=== PATIENT | female | born 1995 | race Caucasian/White ===

== ENCOUNTER 2017-03-30 19:01 | Emergency (ER) | payer OTHER ==
[2017-03-30 19:27] VITALS: BP 130/70
--- NOTE | 2017-03-30 20:00 | UC ---
General HPI - HPI Summary HPI Summary: complaint of tick bites on her right leg thta was about 3 weeks ago her veins popped out around the tick bites sore throat since then feels like her right eye is itchy -occasional clear discharge from eye she has had 3 episodes of loss of vision in the last 3 weeks intermittent headaches denies fever but has had chills feels more fatigued than usual - History of Current Complaint Chief Complaint: UCEye Stated Complaint: EYE COMPLAINT Time Seen by Provider: 03/30/17 19:50 Hx Obtained From: Patient - Allergy/Home Medications Allergies/Adverse Reactions: Allergies Allergy/AdvReac Type Severity Reaction Status Date / Time No Known Allergies Allergy Verified 03/30/17 19:27 Home Medications: Home Medications NK [No Home Medications Reported] 03/30/17 [History Confirmed 03/30/17] PMH/Surg Hx/FS Hx/Imm Hx Previously Healthy: Yes Endocrine History Of: Denies: Diabetes, Thyroid Disease Cardiovascular History Of: Denies: Cardiac Disorders, Hypertension Respiratory History Of: Denies: COPD, Asthma GI/ History Of: Denies: Ulcer - Surgical History Surgical History: None - Family History Known Family History: Negative: Cardiac Disease, Hypertension, Diabetes - Social History Occupation: Employed Full-time Lives: With Family Alcohol Use: None Substance Use Type: None Substance Use Comment - Amount & Last Used: pt declines current use, postive for marijuana at screen early Smoking Status (MU): Current Some Day Smoker Have You Smoked in the Last Year: No Cessation Counseling: Patient Advised to Stop - Immunization History Most Recent Influenza Vaccination: declined last season Most Recent Tetanus Shot: unsure, declined while Most Recent Pneumonia Vaccination: never Review of Systems Constitutional: Fatigue Skin: Negative Eyes: Blurred Vision ENT: Negative Respiratory: Negative Cardiovascular: Negative Gastrointestinal: Negative Genitourinary: Negative Motor: Negative Neurovascular: Negative Musculoskeletal: Arthralgia Neurological: Headache Psychological: Negative All Other Systems Reviewed And Are Negative: Yes Physical Exam Triage Information Reviewed: Yes Appearance: No Pain Distress, Well-Nourished Vital Signs: Initial Vital Signs Temp 98.0 F 03/30/17 19:16 Pulse 62 03/30/17 19:16 Resp 18 03/30/17 19:16 BP 130/70 03/30/17 19:16 Pulse Ox 96 03/30/17 19:16 Vital Signs Reviewed: Yes Eyes: Positive: Conjunctiva Clear. Negative: Conjunctiva Inflamed, Discharge ENT: Positive: Pharynx normal, TMs normal, Other: - PERRL, EOMI, fundoscopic exam normal Neck: Positive: No Lymphadenopathy Respiratory: Positive: Lungs clear, Normal breath sounds, No respiratory distress, No accessory muscle use Cardiovascular: Positive: RRR, No Murmur, Pulses Normal Abdomen Description: Positive: Nontender, No Organomegaly, Soft Bowel Sounds: Positive: Present Musculoskeletal: Positive: No Edema Neurological: Positive: Alert, Other: - CN [id number] Psychological Exam: Normal Skin Exam: Normal Course/Dx - Course Course Of Treatment: exam completed. no neuro deficits iderntified. d/t complaint of loss of vision in right eye 3 episodes in the last 3 weeks will transfer to higher level of care for further evaluation - Differential Dx - Multi-Symptom Provider Diagnoses: headache, visual disturbances - Physician Notifications Discussed Patient Care With: Shweta COMBS Time Discussed With Above Provider: 20:19 Discharge - Discharge Plan Condition: Stable Disposition: TRANS HIGHER L OF CARE FAC
== END 2017-03-30 20:23 | disposition short-term general hospital (02) ==
LOC: UCEAST 19:01
DX: R51 Headache (principal); H53.9 Unspecified visual disturbance; Z72.0 Tobacco use
CPT/HCPCS: 99212; G0463

== ENCOUNTER 2017-03-30 21:15 | Emergency (ER) | payer OTHER ==
[2017-03-30 22:42] VITALS: BP 115/71
[2017-03-31 00:41] LABS: Hematocrit 44 % (35-47); Hemoglobin 14.9 g/dl (12.0-16.0); Mean Corpuscular HGB Conc 34 g/dl (31-36); Mean Corpuscular Hemoglobin 29 pg (27-31); Mean Corpuscular Volume 86 fL (80-97); Mean Platelet Volume 8 um3 (7.4-10.4); Red Cell Distribution Width 13 % (10.5-15); White Blood Count 9.3 10^3/ul (3.5-10.8)
[2017-03-31 00:54] LABS: ALT 13 U/L (7-52); AST 16 U/L (13-39); Albumin 4.5 g/dL (3.2-5.2); Alkaline Phosphatase 57 U/L (34-104); Anion Gap 8 mmol/L (2-11); BUN/Creatinine Ratio 16.2 (8-20); Blood Urea Nitrogen 11 mg/dL (6-24); C Reactive Protein 3.14 mg/L (< 5.00); CO2 Carbon Dioxide 27 mmol/L (22-32); Calcium 9.6 mg/dL (8.6-10.3); Chloride 103 mmol/L (101-111); EGFR African American 136.7 (>60); EGFR Non-African American 106.3 (>60); Glucose 89 mg/dL (70-100); Lipase 22 U/L (11.0-82.0); Potassium 3.7 mmol/L (3.5-5.0); Sodium 138 mmol/L (133-145); Total Protein 7.5 g/dL (6.4-8.9)
[2017-03-31 01:53] LABS: Urine Bacteria 1+ (Absent); Urine Bilirubin Negative (Negative); Urine Glucose Negative (Negative); Urine Nitrite Negative (Negative)
--- NOTE | 2017-03-31 01:58 | ED ---
Haroon Moreno Benjamin, scribed for Melo Segura MD on 03/30/17 at 2310 . Complex/Multi-Sys Presentation - HPI Summary HPI Summary: 22yo female who had 2 tick bites 3 weeks ago at her right thigh. 2 days after, pt reports her right eye temporarily having singh vision for about 5 minutes with right eye pain. Pt then subsequently gets migraines on the right frontal lobe lasting about 15-30 minutes. Pt states that her visual change and migraines recurred every few days, with total of three episodes. Also reports constant nausea, intermittent body aches, feeling hot, having chills, Pts right knee has been giving up lately, but denies having any leg pain. Denies abdominal pain, V/D, rash, or vaginal discharge. Pt doesn't have any previous hx of migraines. - History Of Current Complaint Chief Complaint: EDGeneral Time Seen by Provider: 03/30/17 22:55 Hx Obtained From: Patient Onset/Duration: Gradual Onset, Lasting Weeks - 3 weeks, Still Present, Worse Since - progressively worsening Timing: Intermittent, Lasting:, Minutes - 5-15 minutes Severity Currently: Mild Severity Initially: Mild Location: Pain At: - right eye Associated Signs And Symptoms: Positive: Weakness - RLE, Headache - right frontal migraine, Nausea. Negative: Vomiting, Diarrhea, Abdominal Pain, Back Pain, Dysuria, Melena - Allergies/Home Medications Allergies/Adverse Reactions: Allergies Allergy/AdvReac Type Severity Reaction Status Date / Time No Known Allergies Allergy Verified 03/30/17 21:27 PMH/Surg Hx/FS Hx/Imm Hx Endocrine/Hematology History: Denies: Hx Diabetes, Hx Thyroid Disease Cardiovascular History: Denies: Hx Hypertension Respiratory History: Denies: Hx Asthma, Hx Chronic Obstructive Pulmonary Disease (COPD) GI History: Denies: Hx Ulcer - Immunization History Date of Tetanus Vaccine: utd Date of Influenza Vaccine: utd Infectious Disease History: No Infectious Disease History: Denies: Hx Clostridium Difficile, Hx Hepatitis, Hx Human Immunodeficiency Virus (HIV), Hx of Known/Suspected MRSA, Hx Shingles, Hx Tuberculosis, Hx Known/ Suspected VRSA, History Other Infectious Disease, Traveled Outside the [place] in Last 30 Days - Family History Known Family History: Negative: Cardiac Disease, Hypertension, Diabetes - Social History Occupation: Employed Full-time Lives: With Family Alcohol Use: Rare Substance Use Type: Reports: None Substance Use Comment - Amount & Last Used: pt declines current use, postive for marijuana at screen early Smoking Status (MU): Current Some Day Smoker Have You Smoked in the Last Year: No Review of Systems Positive: Fever, Chills Positive: Other - right eye visual changes Cardiovascular: Negative Respiratory: Negative Positive: Nausea. Negative: Vomiting, Diarrhea Genitourinary: Negative Musculoskeletal: Negative Skin: Negative Positive: Headache Psychological: Normal All Other Systems Reviewed And Are Negative: Yes Physical Exam Triage Information Reviewed: Yes Vital Signs On Initial Exam: Initial Vitals Temp Pulse Resp BP Pulse Ox 98.7 F 66 16 115/81 99 03/30/17 21:20 03/30/17 21:20 03/30/17 21:20 03/30/17 21:20 03/30/17 21:20 Vital Signs Reviewed: Yes Appearance: Positive: Well-Appearing, No Pain Distress, Well-Nourished Skin: Positive: Warm, Skin Color Reflects Adequate Perfusion, Dry Eyes: Positive: EOMI, RANJIT, Other: - no papilledema ENT: Positive: Normal ENT inspection Neck: Positive: Supple, Nontender Respiratory/Lung Sounds: Positive: Clear to Auscultation, Breath Sounds Present Cardiovascular: Positive: RRR Abdomen Description: Positive: Nontender, No Organomegaly, Soft Bowel Sounds: Positive: Present Musculoskeletal: Positive: Normal, Strength/ROM Intact Neurological: Positive: Normal, Sensory/Motor Intact, Alert, Oriented to Person Place, Time Psychiatric: Positive: Affect/Mood Appropriate - [place] Coma Scale Coma Scale Total: 15 Diagnostics - Vital Signs Vital Signs Temp Pulse Resp BP Pulse Ox 03/30/17 22:36 98.3 F 64 16 115/71 98 03/30/17 21:20 98.7 F 66 16 115/81 99 - Laboratory Lab Results: Lab Results 03/31/17 03/31/17 03/31/17 Range/Units 00:27 00:27 00:27 WBC 9.3 (3.5-10.8) 10^3/ul RBC 5.10 (4.0-5.4) 10^6/ul Hgb 14.9 (12.0-16.0) g/dl Hct 44 (35-47) % MCV 86 (80-97) fL MCH 29 (27-31) pg MCHC 34 (31-36) g/dl RDW 13 (10.5-15) % Plt Count 328 (150-450) 10^3/ul MPV 8 (7.4-10.4) um3 Neut % (Auto) 42.5 (38-83) % Lymph % (Auto) 47.0 (25-47) % Coleman % (Auto) 8.9 (1-9) % Eos % (Auto) 1.2 (0-6) % Baso % (Auto) 0.4 (0-2) % Absolute Neuts (auto) 4.0 (1.5-7.7) 10^3/ul Absolute Lymphs (auto) 4.4 (1.0-4.8) 10^3/ul Absolute Monos (auto) 0.8 (0-0.8) 10^3/ul Absolute Eos (auto) 0.1 (0-0.6) 10^3/ul Absolute Basos (auto) 0 (0-0.2) 10^3/ul Absolute Nucleated RBC 0.01 10^3/ul Nucleated RBC % 0.1 INR (Anticoag Therapy) 0.94 (0.89-1.11) APTT 32.8 (26.0-36.3) seconds Sodium 138 (133-145) mmol/L Potassium 3.7 (3.5-5.0) mmol/L Chloride 103 (101-111) mmol/L Carbon Dioxide 27 (22-32) mmol/L Anion Gap 8 (2-11) mmol/L BUN 11 (6-24) mg/dL Creatinine 0.68 (0.51-0.95) mg/dL Est GFR ( Amer) 136.7 (>60) Est GFR (Non-Af Amer) 106.3 (>60) BUN/Creatinine Ratio 16.2 (8-20) Glucose 89 (70-100) mg/dL Lactic Acid (0.5-2.0) mmol/L Calcium 9.6 (8.6-10.3) mg/dL Magnesium 2.0 (1.9-2.7) mg/dL Total Bilirubin 0.40 (0.2-1.0) mg/dL AST 16 (13-39) U/L ALT 13 (7-52) U/L Alkaline Phosphatase 57 (34-104) U/L C-Reactive Protein 3.14 (< 5.00) mg/L Total Protein 7.5 (6.4-8.9) g/dL Albumin 4.5 (3.2-5.2) g/dL Globulin 3.0 (2-4) g/dL Albumin/Globulin Ratio 1.5 (1-3) Lipase 22 (11.0-82.0) U/L TSH 0.80 (0.34-5.60) mcIU/mL Beta HCG, Quant < 0.60 mIU/mL Urine Color Urine Appearance Urine pH (5-9) Ur Specific [place] (1.010-1.030) Urine Protein (Negative) Urine Ketones (Negative) Urine Blood (Negative) Urine Nitrate (Negative) Urine Bilirubin (Negative) Urine Urobilinogen (Negative) Ur Leukocyte Esterase (Negative) Urine WBC (Auto) (Absent) Urine RBC (Auto) (Absent) Ur Squamous Epith Cells (Absent) Urine Bacteria (Absent) Urine Glucose (Negative) 03/31/17 03/31/17 Range/Units 00:27 01:35 WBC (3.5-10.8) 10^3/ul RBC (4.0-5.4) 10^6/ul Hgb (12.0-16.0) g/dl Hct (35-47) % MCV (80-97) fL MCH (27-31) pg MCHC (31-36) g/dl RDW (10.5-15) % Plt Count (150-450) 10^3/ul MPV (7.4-10.4) um3 Neut % (Auto) (38-83) % Lymph % (Auto) (25-47) % Coleman % (Auto) (1-9) % Eos % (Auto) (0-6) % Baso % (Auto) (0-2) % Absolute Neuts (auto) (1.5-7.7) 10^3/ul Absolute Lymphs (auto) (1.0-4.8) 10^3/ul Absolute Monos (auto) (0-0.8) 10^3/ul Absolute Eos (auto) (0-0.6) 10^3/ul Absolute Basos (auto) (0-0.2) 10^3/ul Absolute Nucleated RBC 10^3/ul Nucleated RBC % INR (Anticoag Therapy) (0.89-1.11) APTT (26.0-36.3) seconds Sodium (133-145) mmol/L Potassium (3.5-5.0) mmol/L Chloride (101-111) mmol/L Carbon Dioxide (22-32) mmol/L Anion Gap (2-11) mmol/L BUN (6-24) mg/dL Creatinine (0.51-0.95) mg/dL Est GFR ( Amer) (>60) Est GFR (Non-Af Amer) (>60) BUN/Creatinine Ratio (8-20) Glucose (70-100) mg/dL Lactic Acid 0.6 (0.5-2.0) mmol/L Calcium (8.6-10.3) mg/dL Magnesium (1.9-2.7) mg/dL Total Bilirubin (0.2-1.0) mg/dL AST (13-39) U/L ALT (7-52) U/L Alkaline Phosphatase (34-104) U/L C-Reactive Protein (< 5.00) mg/L Total Protein (6.4-8.9) g/dL Albumin (3.2-5.2) g/dL Globulin (2-4) g/dL Albumin/Globulin Ratio (1-3) Lipase (11.0-82.0) U/L TSH (0.34-5.60) mcIU/mL Beta HCG, Quant mIU/mL Urine Color Yellow Urine Appearance Cloudy Urine pH 6.0 (5-9) Ur Specific [place] 1.020 (1.010-1.030) Urine Protein Negative (Negative) Urine Ketones Negative (Negative) Urine Blood Negative (Negative) Urine Nitrate Negative (Negative) Urine Bilirubin Negative (Negative) Urine Urobilinogen Negative (Negative) Ur Leukocyte Esterase 1+ H (Negative) Urine WBC (Auto) 1+(6-10/hpf) H (Absent) Urine RBC (Auto) 1+(3-5/hpf) H (Absent) Ur Squamous Epith Cells Present H (Absent) Urine Bacteria 1+ H (Absent) Urine Glucose Negative (Negative) Result Diagrams: 03/31/17 00:27 03/31/17 00:27 Lab Statement: Any lab studies that have been ordered have been reviewed, and results considered in the medical decision making process. - CT CT brain CT Interpretation: No Acute Changes CT Interpretation Completed By: Radiologist Complex Multi-Symp Course/Dx Course Of Treatment: NO CRITICAL CARE TIME Assessment/Plan: WELL IN ED. DISCUSSED RESULTS WITH PATIENT. SHE WILL F/U WITH OPHTHALMOLOGY AND PMD. DISCHARGE HOME STABLE. - Diagnoses Provider Diagnoses: Headache, Blurred vision, Tick bite Discharge - Discharge Plan Condition: Stable Disposition: HOME Patient Education Materials: Tick Bite (ED), Blurred Vision (ED), General Headache (ED) Referrals: [facility] [place] [facility] [Outside] No Primary Care Phys,NOPCP [Primary Care Provider] - [facility] [place] [Provider Group] PAM CRISTOBAL MD [Provider Group] Additional Instructions: FOLLOW UP WITH YOUR PRIMARY CARE DOCTOR AND EXPERT MEDICAL WRITER. RETURN TO THE EMERGENCY DEPARTMENT FOR ANY WORSENING OF YOUR CONDITION; VISION CHANGE, HEADACHE, YOU FEEL ILL, WEAKNESS, NUMBNESS OR QUESTIONS OR CONCERNS. The documentation as recorded by the Haroon interiano Benjamin accurately reflects the service I personally performed and the decisions made by me, Melo Segura MD.
--- NOTE | 2017-03-31 07:41 | RAD ---
HISTORY: right-sided headache, visual changes COMPARISONS: None TECHNIQUE: Multiple contiguous axial CT scans were obtained of the head without intravenous contrast. FINDINGS: HEMORRHAGE/INFARCT: There is no hemorrhage or acute infarct. MASSES/SHIFT: There is no mass or shift. EXTRA-AXIAL SPACES: There are no extra-axial fluid collections. SULCI AND VENTRICLES: The sulci and ventricles are normal in size and position for the patient's stated age. CEREBRUM: There are no focal parenchymal abnormalities. BRAINSTEM: There are no focal parenchymal abnormalities. CEREBELLUM: There are no focal parenchymal abnormalities. VESSELS: The vessels are grossly normal. PARANASAL SINUSES: The paranasal sinuses are clear. ORBITS: The orbits are unremarkable. BONES AND SOFT TISSUE: No bone or soft tissue abnormalities are noted. OTHER: None IMPRESSION: NO ACUTE INTRACRANIAL PATHOLOGY.
== END 2017-03-31 02:35 | disposition home or self-care (01) ==
LOC: ED 21:15
DX: R53.1 Weakness (principal); R51 Headache; R11.0 Nausea; R50.9 Fever, unspecified; Z87.891 Personal history of nicotine dependence; H53.8 Other visual disturbances; T14.8 Other injury of unspecified body region; W57.XXXA Bitten or stung by nonvenomous insect and other nonvenomous arthropods, initial encounter; Y93.9 Activity, unspecified; Y92.9 Unspecified place or not applicable; Y99.9 Unspecified external cause status
CPT/HCPCS: 36415; 70450; 80053; 81003; 81015; 83605; 83690; 83735; 84443; 84702; 85025; 85610; 85730; 86140; 86618; 87086; 99282

== ENCOUNTER → 2018-12-11 | Emergency (ER) | payer OTHER ==
[~2018-12-11] MED LIST: NS 0.9% 1000 ML** 1,000 ML IV ONE
--- NOTE | 2018-12-11 13:20 | ED ---
Abdominal Pain/Female - HPI Summary HPI Summary: A 23 y/o female accompanied by her family presents to [facility] with a chief complaint of lower abdominal pain since the morning of 12/11/18. She describes her pain as cramping and rates her pain as a 7/10 in severity. She reports that the pain is mostly left sided. The patient is 14 weeks and has one child. Ab0. The patient reports some nausea and constipation, claiming that her last BM was on 12/09/18. She reports that the bowel movement looked normal. She reports that she has had normal vaginal discharge without bleeding. She also c/o nausea but denies vomiting, diarrhea or having contractions. She sees Frantz Willis at [facility] and is satisfied with her service. She denies smoking, drug use or alcohol use. She denies a Hx of HTN, DM or HLD. - History of Current Complaint Chief Complaint: EDAbdPain Stated Complaint: 14 WEEKS PREG/ABD CRAMPING Time Seen by Provider: 12/11/18 12:36 Hx Obtained From: Patient Hx Last Menstrual Period: 03/27/17 Onset/Duration: Sudden Onset, Lasting Hours, Still Present Timing: Hours Severity Initially: Severe Severity Currently: Severe Pain Intensity: 7 Pain Scale Used: 0-10 Numeric Location: Other - mostly left sided Radiates: No Character: Cramping Aggravating Factor(s): Nothing Alleviating Factor(s): Nothing Associated Signs and Symptoms: Positive: Constipation, Vaginal Discharge, Nausea. Negative: Fever, Blood in Stool, Vaginal Bleeding, Vomiting, Diarrhea Allergies/Adverse Reactions: Allergies Allergy/AdvReac Type Severity Reaction Status Date / Time No Known Allergies Allergy Verified 12/11/18 11:25 Home Medications: Home Medications Pnv No.95/Ferrous Fum/Folic AC [ Caplet] 1 each PO DAILY 12/11/18 [ History Confirmed 12/11/18] PMH/Surg Hx/FS Hx/Imm Hx Endocrine/Hematology History: Denies: Hx Diabetes, Hx Thyroid Disease Cardiovascular History: Denies: Hx Hypercholesterolemia, Hx Hypertension Respiratory History: Denies: Hx Asthma, Hx Chronic Obstructive Pulmonary Disease (COPD) GI History: Denies: Hx Ulcer - Immunization History Date of Tetanus Vaccine: utd Date of Influenza Vaccine: utd Infectious Disease History: No Infectious Disease History: Denies: Hx Clostridium Difficile, Hx Hepatitis, Hx Human Immunodeficiency Virus (HIV), Hx of Known/Suspected MRSA, Hx Shingles, Hx Tuberculosis, Hx Known/ Suspected VRSA, History Other Infectious Disease, Traveled Outside the [place] in Last 30 Days - Family History Known Family History: Negative: Cardiac Disease, Hypertension, Diabetes - Social History Alcohol Use: None Substance Use Type: Reports: None Substance Use Comment - Amount & Last Used: pt declines current use, postive for marijuana at screen early Smoking Status (MU): Former Smoker Have You Smoked in the Last Year: No Review of Systems Negative: Fever Positive: Abdominal Pain, Nausea, Other - positive: constipation, normal bowel movements. Negative: Vomiting, Diarrhea Genitourinary: Negative - vaginal bleeding or contractions, Other - Positive: vaginal discharge All Other Systems Reviewed And Are Negative: Yes Physical Exam - Summary Physical Exam Summary: VITAL SIGNS: Reviewed. GENERAL: Patient is a well-developed and nourished female who is lying comfortable in the stretcher. Patient is not in any acute respiratory distress. HEAD AND FACE: Normocephalic and atraumatic. EYES: PERRLA, EOMI x 2, No injected conjunctiva. EARS: Hearing grossly intact. Ear canals and tympanic membranes are WNL. MOUTH: Oropharynx within normal limits. NECK: Supple, trachea is midline, no adenopathy, no JVD. CHEST: Symmetric, no tenderness at palpation LUNGS: Clear to auscultation bilaterally. No wheezing or crackles. CVS: RRR, S1 and S2 present, no murmurs or gallops appreciated. ABDOMEN: Soft, LLQ tenderness. No signs of distention. Positive bowel sounds. No rebound no guarding, and no masses palpated. No abdominal bruit or pulsations. EXTREMITIES: FROM in all major joints, no edema, no cyanosis or clubbing. NEURO: Alert and oriented x 3. No acute neurological deficits. Speech is normal. SKIN: Dry and warm Triage Information Reviewed: Yes Vital Signs On Initial Exam: Initial Vitals Temp Pulse Resp BP Pulse Ox 98.8 F 83 20 118/75 98 12/11/18 11:21 12/11/18 11:21 12/11/18 11:21 12/11/18 11:21 12/11/18 11:21 Vital Signs Reviewed: Yes Diagnostics - Vital Signs Vital Signs Temp Pulse Resp BP Pulse Ox 12/11/18 11:21 98.8 F 83 20 118/75 98 - Laboratory Result Diagrams: 12/11/18 13:31 12/11/18 13:31 Lab Statement: Any lab studies that have been ordered have been reviewed, and results considered in the medical decision making process. Re-Evaluation - Re-Evaluation First Eval Re-Evaluation Time: 15:33 Change: Unchanged Comment: Informed patient about results and plan for DC Abdominal Pain Fem Course/Dx - Course Course Of Treatment: Blood work without any significant abnormality except 4 CRP of 5.44 and lipase 8 stent. In the ED course I ordered IV fluids, the patient refused. In the ED course the patient did not require any pain medication, the patient is comfortable. I discussed the case with Dr. Back from the [facility] and he recommends to JUST FOLLOW-UP WITH THE [facility]. I also discussed the case with Ms. Willis who is the copper flotation operator for the patient and she also agrees no ultrasound at this point, given a position for MiraLAX for constipation and discharged her home and follow up with her office. The patient reports and that she is feeling better and the pain is only 1-2 out of 10 only when she moves and she agrees with the plan to be discharged home on follow-up with Ms. Mckeon. Patient is hemodynamically stable alert and oriented 3. - Diagnoses Provider Diagnoses: Lower abdominal pain, , Constipation - Provider Notifications Discussed Care Of Patient With: Nayan Back Time Discussed With Above Provider: 14:45 Instructed by Provider To: Other - Does not recommend ultrasound Discharge - Sign-Out/Discharge Documenting (check all that apply): Patient Departure - DC Patient Received Moderate/Deep Sedation with Procedure: No - Discharge Plan Condition: Stable Disposition: HOME Prescriptions: Polyethylene Glycol 3350* [Miralax*] 17 gm PO DAILY #12 packet Referrals: [facility] [place] [facility] [Outside] - 3 Days () Additional Instructions: Return to the ED if you experience any new or worsening pain. - Billing Disposition and Condition Condition: STABLE Disposition: Home - Attestation Statements Document Initiated by Scribe: Yes Documenting Scribe: Bharathi Mabry Provider For Whom Scribe is Documenting (Include Credential): Aris Bradley MD Scribe Attestation: IBharathi, scribed for Aris Bradley MD on 12/11/18 at 2120. Scribe Documentation Reviewed: Yes Provider Attestation: The documentation as recorded by the scribe, Bharathi Mabry accurately reflects the service I personally performed and the decisions made by me, Aris Bradley MD Status of Scribe Document: Viewed Consult Consult: At 15:30 - Discussed case with Frantz Willis from [facility], who also agreed with not getting an Ultrasound
[2018-12-11 13:36] LABS: Urine Appearance Cloudy; Urine Bacteria Absent (Absent); Urine Bilirubin Negative (Negative); Urine Blood Negative (Negative); Urine Color Yellow; Urine Glucose Negative (Negative); Urine Ketones Negative (Negative); Urine Nitrite Negative (Negative); Urine Protein Negative (Negative); Urine Red Blood Cell 2+(6-10/hpf) (Absent); Urine Specific Gravity 1.019 (1.010-1.030); Urine Squamous Epithelial Cell Present (Absent); Urine Urobilinogen Negative (Negative); Urine White Blood Cell 3+(>20/hpf) (Absent)
[2018-12-11 13:57] LABS: Albumin 3.8 g/dL (3.2-5.2); Albumin/Globulin Ratio 1.3 (1-3); BUN/Creatinine Ratio 11.1 (8-20); C Reactive Protein 9.44 mg/L (<8.01); Calcium 9.3 mg/dL (8.6-10.3); EGFR African American 166.4 (>60); EGFR Non-African American 137.6 (>60); Globulin 2.9 g/dL (2-4); Potassium 3.6 mmol/L (3.5-5.0); Total Bilirubin 0.4 mg/dL (0.2-1.0); Total Protein 6.7 g/dL (6.4-8.9)
[2018-12-11 14:00] LABS: ABS Basophils 0 10^3/ul (0-0.2); ABS Eosinophils 0.2 10^3/ul (0-0.6); ABS Lymphocytes 2.2 10^3/ul (1.0-4.8); ABS Monocytes 0.6 10^3/ul (0-0.8); ABS Neutrophils 5.7 10^3/ul (1.5-7.7); ABS Nucleated RBC 0 10^3/ul; Eosinophil % 2.2 %; Hematocrit 37 % (35-47); Hemoglobin 12.7 g/dl (12.0-16.0); Lymphocyte % 25.2 %; Mean Corpuscular HGB Conc 35 g/dl (31-36); Mean Corpuscular Hemoglobin 30 pg (27-31); Mean Corpuscular Volume 86 fL (80-97); Mean Platelet Volume 7.9 fL (7.4-10.4); Nucleated Red Blood Cells % 0; Platelet Count 300 10^3/ul (150-450); Red Blood Count 4.26 10^6/ul (4.00-5.40); Red Cell Distribution Width 12 % (10.5-15); White Blood Count 8.7 10^3/ul (3.5-10.8)
[2018-12-11 15:54] VITALS: BP 101/60
--- NOTE | 2018-12-13 05:49 | PN ---
Progress Note - Progress Note Date of Service: 12/13/18 Note: patient urine culture grew E coli 50-75,000 which is not a significant culture so will not treat at this time.
--- NOTE | 2018-12-14 18:02 | PN ---
Progress Note - Progress Note Date of Service: 12/11/18 Note: Pt. seen in ED / for abd. pain in . Urine culture today growing 50- 75k e. coli. Attempted to call pt. today at 1241 to discuss sxs, message left to return call. Will attempt to reach pt. again tomorrow.
== END | disposition home or self-care (01) ==
LOC: ED 11:17
DX: O26.92 Pregnancy related conditions, unspecified, second trimester (principal); Z3A.14 14 weeks gestation of pregnancy; K59.00 Constipation, unspecified; R11.0 Nausea; R10.30 Lower abdominal pain, unspecified
CPT/HCPCS: 36415; 80053; 81003; 81015; 82150; 83690; 85025; 86140; 87077; 87086; 87186; 99282

== ENCOUNTER 2019-06-08 09:30 | Inpatient (IN) | payer MEDICAID, OTHER ==
[2019-06-08] MEDS ORDERED: Buffered Lidocaine 1% SYRIN* 1 ML/SYRINGE INTRADERM ONE (10:33)
[2019-06-08] MEDS ORDERED: Lactated Ringers 1000 ML Bag* 1,000 ML IV ONE (10:33)
--- NOTE | 2019-06-08 10:42 | HP ---
General Information - Reason for Visit Contractions since 0700 this am, getting stronger - General Information Maternal Age: 24 Grav: 2 Para: 1 SAB: 0 IEA: 0 Estimated Due Date: 06/14/19 Determined By: Early Ultrasound Maternal Blood Type and Rh: A Positive - Results this Serology/RPR Result: Non-Reactive Rubella Result: Immune HBsAg Result: Negative HIV Result: Negative GBS Culture Result: Negative Past Medical History Delivery History: Hx Uncomplicated Vaginal Delivery Delivery History Comment: SVB 05/2015 Pertinent Past Medical History: Non-Contributory Pertinent Past Surgical History: None Pertinent Family History: Non-Contributory - Antepartal Records Antepartal Records: Reviewed, Uncomplicated Review of Systems Constitutional: Uncomfortable CV Complaint: No Respiratory: Shortness of Breath: No Gastrointestinal: No Nausea/Vomiting Genitourinary: No Leaking Fluid, Spotting Musculoskeletal: Contractions Neurological: No Headache, No Visual Changes Movement: Normal Exam Allergies/Adverse Reactions: Allergies No Known Allergies Allergy (Verified 12/11/18 11:25) Vital Signs 06/08/19 10:05 Temperature 97.8 F Pulse Rate 75 Respiratory 16 Rate Blood Pressure 131/55 (mmHg) O2 Sat by Pulse 100 Oximetry - Measurements Height: 5 ft 5 in Weight: 181 lb Body Mass Index (BMI): 30.1 Pre- Weight: 120 lb - Exam Breast: Breast Exam Deferred - Abdominal Exam Abdomen Exam: Non-Tender, Fundal Height Consistent with Dates - Ultrasound/Biophysical Profile Ultrasound Status: Not Done Targeted Exam Findings Estimated Weight: 7.5oz Cervical Exam: Complete Effacement: Complete Station: +3 Presenting Part: Vertex Membrane Status: Bulging Bleeding/Discharge: Bloody Show EFM Findings - External Monitor Findings Baseline Heart Rate: 130 External Monitor Findings: Accelerations Present, No Pattern of Variable or Late Decelerations, Variability Moderate Contractions: Strong, 45-90 Seconds Contraction Frequency: q2-4 Assessment/Plan - Assessment IUP @ 38+3 weeks gestation in active labor with delivery imminent. IBOW. No evidence metabolic acidemia - Plan Plan: Admit - Anticipate Vaginal Delivery Plan Comment: Delivery imminent - Date/Time of Admission Date of Admission: 06/08/19 Time of Admission: 09:45
[2019-06-08] MEDS ORDERED: Glycerin ADULT SUPP PR PRN (10:48)
[2019-06-08] MEDS ORDERED: Acetaminophen TAB* 325 MG PO PRN (10:48)
[2019-06-08] MEDS ORDERED: Witch Hazel PAD* JAR TOPICAL PRN (10:48)
[2019-06-08] MEDS ORDERED: Dibucaine 1% 28.35 GM TUBE PR PRN (10:48)
[2019-06-08] MEDS ORDERED: Ibuprofen TAB* 600 MG PO PRN (10:48)
[2019-06-08] MEDS ORDERED: Lactated Ringers 1000 ML Bag* 1,000 ML IV SCH (11:00)
[2019-06-08 12:55] LABS: Urine Benzodiazepine Screen None Detected (None Detect); Urine Opiates Screen None Detected (None Detect)
[2019-06-08] MEDS: Docusate CAP* 100 MG PO SCH ×2 (15:17→21:30)
[2019-06-09 08:36] LABS: ABS Basophils 0.1 10^3/ul (0-0.2); ABS Eosinophils 0.2 10^3/ul (0-0.6); ABS Neutrophils 11.9 10^3/ul (1.5-7.7); Eosinophil % 1.1 %; Hematocrit 33 % (35-47); Hemoglobin 11.4 g/dL (12.0-16.0); Lymphocyte % 18.4 %; Mean Corpuscular HGB Conc 34 g/dL (31-36); Mean Corpuscular Hemoglobin 30 pg (27-31); Mean Corpuscular Volume 86 fL (80-97); Mean Platelet Volume 7.7 fL (7.4-10.4); Platelet Count 237 10^3/uL (150-450); Red Blood Count 3.86 10^6 /uL (3.70-4.87); Red Cell Distribution Width 14 % (10-15); White Blood Count 16.1 10^3/uL (3.5-10.8)
[2019-06-09] MEDS ORDERED: Tetan/Diph/Pertus SYR(Tdap)* 0.5 ML SYR(BOOSTRIX) use SYR IM ONE (09:00)
[2019-06-09] MEDS ORDERED: Ferrous Gluconate TAB* 324 MG TAB PO SCH (09:00)
[2019-06-09 09:14] VITALS: BP 114/73
[2019-06-09] MEDS: Docusate CAP* 100 MG PO SCH (09:39)
--- NOTE | 2019-06-09 11:30 | PROCNOTE ---
[facility] OB: Delivery Note - Delivery A Date of : 06/08/19 Time of : 09:45 Luebbering Sex: Male - "Sharan" Luebbering Weight at : 7 lb 11 oz Score 1 Minute: 9 Score 5 Minutes: 9 Gestational Age in Weeks and Days at Delivery: 39 Weeks and 1 Days Delivery Method: Spontaneous Vaginal Labor: Spontaneous Did Patient attempt ?: N/A, No Previous Amniotic Fluid: Clear Estimated Blood Loss: 250 Anesthesia/Analgesia: None - Nursery Level of Nursery: Regular/Bedside - Perineum Perineal Injury: 1st Degree - Events Delivery Events of Note: Precipitous Delivery - Additional Delivery Notes Additional Delivery Notes: Patient admitted in active labor with urge to push shortly thereafter. LOL 2'22 ", pushed 5 min. Spontaneous rupture of membranes while pushing. Baby born OA to EMILIE @ 0945 with shoulders following quickly with maternal efforts. Delivered to maternal abdomen with spontaneous cry, HR >100. Cord doubly clamped and cut by FOB once pulsations ceased. Fundus firm to massage. Small first degree perineal laceration hemostatic and not repaired. Baby and mother stable, planning to breastfeed.
== END 2019-06-09 13:20 | disposition home or self-care (01) | DRG 560 ==
LOC: MCHOBOUT 09:30 → MCHOB 09:37
PROVIDERS: ADMIT Midwife; ATTEND Midwife
PROC: 10E0XZZ Delivery of Products of Conception, External Approach (ICD-10-PCS; principal; 2019-06-08)
DX: O62.3 Precipitate labor (principal); Z37.0 Single live birth; O70.0 First degree perineal laceration during delivery; Z3A.38 38 weeks gestation of pregnancy
CPT/HCPCS: 36415; 80307; 85025; 90715; A9270-GY

== ENCOUNTER 2019-08-26 15:39 | Emergency (ER) | payer OTHER ==
--- OUTSIDE RECORDS SUMMARY | 2019-08-26 16:26 | XMS REPORT | Summary of Care ---
:1995 Author Organization [facility] Address [address] [facility] [place] [address] Care Team Providers Name Role Phone Jose Cortes Primary Care Provider Reason for Visit Reason Comments Cough pt presents for cough, fever, vomiting, nausea, cold chills, diarrhea. Started last . No appetite. Seen in urgent care monday and put on amox BID, but feels worse. Encounter Details Date Type Department Care Team Description 08/26/2019 Office Visit [facility] Jose Cortes, Flu-like symptoms Practice [address] [facility] (Primary Dx) [address] [place] [address] [place] [address] [phone] Allergies No Known Allergiesdocumented as of this encounter (statuses as of 08/26/2019) Medications Medication Sig Dispensed Refills Start Date End Date Status Amoxicillin 500 MG Oral Take 1 Tab by 14 Tab 0 03/04/2019 Active Tab mouth TWICE DAILY. documented as of this encounter (statuses as of 08/26/2019) Active Problems Problem Noted Date Plantar wart of right foot documented as of this encounter (statuses as of 08/26/2019) Social History Tobacco Use Types Packs/Day Years Used Date Former Smoker Cigarettes Smokeless Tobacco: Never Used Comments: 2-3 cigarettes a day Alcohol Use Drinks/Week oz/Week Comments Yes occasional Sex Assigned at Date Recorded Not on file Job Start Date Occupation Industry Not on file Not on file Not on file Travel History Travel Start Travel End No recent travel history available. documented as of this encounter Last Filed Vital Signs Vital Sign Reading Time Taken Comments Blood Pressure 118/68 08/26/2019 2:44 PM EDT Pulse 103 08/26/2019 2:44 PM EDT Temperature 39.8 08/26/2019 2:44 PM C (103.6 EDT F) Respiratory Rate - - Oxygen Saturation 91% 08/26/2019 2:44 PM EDT Inhaled Oxygen Concentration - - Weight 93.8 kg (206 lb 12.8 oz) 08/26/2019 2:44 PM EDT Height 167.6 cm (5' 6") 08/26/2019 2:44 PM EDT Body Mass Index 33.38 08/26/2019 2:44 PM EDT documented in this encounter Progress Notes Jose Cortes, DO - 08/26/2019 2:20 PM EDT PATIENT: Miguel De Anda : 1995 DATE OF SERVICE: 08/26/2019 CHIEF COMPLAINT: Chief Complaint Patient presents with Cough pt presents for cough, fever, vomiting, nausea, cold chills, diarrhea. Started last . No appetite. Seen in urgent care monday and put on amox BID , but feels worse. Subjective HISTORY OF PRESENT ILLNESS: Miguel De Anda is a 24-y.o. female. HPI 4 days ago started with fever, diarrhea, ear ache Went to local urgent care who gave amoxicillin for ear infection Ear pain ok now Fever have continue to persist and feverish today in clinic No fever med taken today Diarrhea >15 times a day last 3 days Started prior to antibiotic - diarrhea Body aches Run down Has 2 month and a toddler at home drive her today Past Medical History: Diagnosis Date Anxiety Heart palpitations Migraine Plantar wart of right foot Family History Problem Relation Age of Onset Thyroid Mother Heart Father High Cholesterol Father Thyroid Sister No Known Problems Brother Current Outpatient Medications Medication Sig Amoxicillin 500 MG Oral Tab Take 1 Tab by mouth TWICE DAILY. No current facility-administered medications for this visit. No Known Allergies Social History Socioeconomic History Marital status: Spouse name: Not on file Number of children: Not on file Years of education: Not on file Highest education level: Not on file Occupational History Not on file Social Needs Financial resource strain: Not on file Food insecurity: Worry: Not on file Inability: Not on file Transportation needs: Medical: Not on file Non-medical: Not on file Tobacco Use Smoking status: Former Smoker Types: Cigarettes Smokeless tobacco: Never Used Tobacco comment: 2-3 cigarettes a day Substance and Sexual Activity Alcohol use: Yes Comment: occasional Drug use: No Sexual activity: Not on file Lifestyle Physical activity: Days per week: Not on file Minutes per session: Not on file Stress: Not on file Relationships Social connections: Talks on phone: Not on file Gets together: Not on file Attends congregation service: Not on file Active member of club or organization: Not on file Attends meetings of clubs or organizations: Not on file Relationship status: Not on file Intimate partner violence: Fear of current or ex partner: Not on file Emotionally abused: Not on file Physically abused: Not on file Forced sexual activity: Not on file Other Topics Concern Back Care Not Asked Bike Helmet Not Asked Blood Transfusions Not Asked Caffeine Concern Not Asked Exercise Not Asked Hobby Hazards Not Asked International Travel Not Asked Service Not Asked Occupational Exposure Not Asked Seat Belt Yes Self-Exams Yes Sleep Concern Not Asked Special Diet Not Asked Stress Concern Not Asked Weight Concern Not Asked Social History Narrative Not on file Over the last 2 weeks, have you been feeling down, depressed, anxious, or hopeless?: 0 Over the past 2 weeks, have you felt little interest or pleasure in doing things ?: 0 REVIEW OF SYSTEMS: Review of Systems Constitutional: Positive for malaise/fatigue. Respiratory: Negative for shortness of breath. Skin: Negative for rash. Neurological: Positive for dizziness. Negative for headaches. Objective PHYSICAL EXAM: VITALS: BP 118/68 (BP Location: Left arm, Patient Position: Sitting) | Pulse 103 | Temp (!) 103.6F (39.8 C) | Ht 5' 6" (1.676 m) | Wt 206 lb 12.8 oz (93.8 kg) | SpO2 91% | BMI 33.38 kg/m Body mass index is 33.38 kg/m . Physical Exam Constitutional: Appearance: She is ill-appearing. She is not toxic-appearing. HENT: Head: Normocephalic and atraumatic. Mouth/Throat: Mouth: Mucous membranes are dry. Pharynx: Oropharynx is clear. Eyes: Conjunctiva/sclera: Conjunctivae normal. Cardiovascular: Rate and Rhythm: Normal rate and regular rhythm. Pulmonary: Effort: Pulmonary effort is normal. Breath sounds: Normal breath sounds. Abdominal: General: Abdomen is flat. Tenderness: There is no tenderness. ASSESSMENT / IMPRESSION: ICD-9-CM ICD-10-CM 1. Flu-like symptoms 780.99 R68.89 Plan She has flu symptoms She is dehydrated Advised to go ER and get labs, c diff and flu swab tested More than testing she needs IV fluids. She is feeling dizzy at home while carrying baby which is dangerous She agreed to go right away with Author: Jose Cortes DO 08/26/2019 15:12 documented in this encounter Plan of Treatment Health Maintenance Due Date Last Done Comments PAP SMEAR 1995 HIV SCREENING 02/14/2008 HPV IMMUNIZATION SERIES (1 - 02/14/2008 Female 3-dose series) INFLUENZA VACCINE (#1) 2019 DEPRESSION SCREENING 08/26/2020 08/26/2019 MENINGOCOCCAL VACCINE IMM Aged Out No longer eligible based on patient's age to complete this topic PNEUMOCOCCAL 0-64 YRS Aged Out No longer eligible based on patient's age to complete this topic documented as of this encounter Results Not on filedocumented in this encounter Visit Diagnoses Diagnosis Flu-like symptoms - Primary Influenza with other respiratory manifestations documented in this encounter Insurance Payer Benefit Plan / Subscriber ID Effective Dates Phone Address Type Group [facility] xxxxxxxxxxx 2017-2019 [place] documented as of this encounter
--- NOTE | 2019-08-26 17:02 | ED ---
Influenza-Like Illness - HPI Summary HPI Summary: 24 year old female presents with cough for the past couple days. She's had a fever but that has resolved. She states she was diagnosed with ear infection and started on amoxicillin. She's been having nausea vomiting diarrhea. No abdominal pain. No chest pain or shortness of breath. Admits occasional sore throat. Admits to nasal congestion. She is currently breast-feeding. Has no medical conditions. She is nonsmoker. No recent travel. No pain or swelling in calf muscles. - History of Current Complaint Chief Complaint: EDFluSymptoms Time Seen by Provider: 08/26/19 16:35 - Allergy/Home Medications Allergies/Adverse Reactions: Allergies Allergy/AdvReac Type Severity Reaction Status Date / Time No Known Allergies Allergy Verified 08/26/19 16:07 PMH/Surg Hx/FS Hx/Imm Hx Endocrine/Hematology History: Denies: Hx Diabetes, Hx Thyroid Disease Cardiovascular History: Denies: Hx Hypercholesterolemia, Hx Hypertension Respiratory History: Denies: Hx Asthma, Hx Chronic Obstructive Pulmonary Disease (COPD) GI History: Denies: Hx Ulcer - Immunization History Date of Tetanus Vaccine: utd Date of Influenza Vaccine: utd Infectious Disease History: No Infectious Disease History: Denies: Hx Clostridium Difficile, Hx Hepatitis, Hx Human Immunodeficiency Virus (HIV), Hx of Known/Suspected MRSA, Hx Shingles, Hx Tuberculosis, Hx Known/ Suspected VRSA, History Other Infectious Disease, Traveled Outside the in Last 30 Days - Family History Known Family History: Negative: Cardiac Disease, Hypertension, Diabetes - Social History Alcohol Use: Rare Substance Use Type: Reports: None Substance Use Comment - Amount & Last Used: pt declines current use, postive for marijuana at screen early Smoking Status (MU): Former Smoker Have You Smoked in the Last Year: No Review of Systems Positive: Fever Positive: Sore Throat, Nasal Discharge Negative: Chest Pain Positive: Cough. Negative: Shortness Of Breath Positive: Vomiting, Diarrhea, Nausea. Negative: Abdominal Pain All Other Systems Reviewed And Are Negative: Yes Physical Exam Triage Information Reviewed: Yes Vital Signs On Initial Exam: Initial Vitals Temp Pulse Resp BP Pulse Ox 98.7 F 97 18 123/88 92 08/26/19 15:41 08/26/19 15:41 08/26/19 15:41 08/26/19 15:41 08/26/19 15:41 Vital Signs Reviewed: Yes Appearance: Positive: Well-Appearing Skin: Positive: Warm, Dry Head/Face: Positive: Normal Head/Face Inspection Eyes: Positive: Normal, EOMI, RANJIT, Conjunctiva Clear ENT: Positive: Normal ENT inspection, Pharynx normal, TMs normal Neck: Positive: Supple, Tenderness @ - posterior cervical, Enlarged Nodes @ - posterior cervical. Negative: Nuchal Rigidity Respiratory/Lung Sounds: Positive: Clear to Auscultation, Breath Sounds Present Cardiovascular: Positive: Normal, RRR Abdomen Description: Positive: Nontender, Soft Bowel Sounds: Positive: Present Musculoskeletal: Positive: Normal Neurological: Positive: Normal Psychiatric: Positive: Normal Procedures - Sedation Patient Received Moderate/Deep Sedation with Procedure: No Diagnostics - Vital Signs Vital Signs Temp Pulse Resp BP Pulse Ox 08/26/19 15:41 98.7 F 97 18 123/88 92 - Laboratory Lab Statement: Any lab studies that have been ordered have been reviewed, and results considered in the medical decision making process. - Radiology chest Radiology Interpretation Completed By: Radiologist Summary of Radiographic Findings: IMPRESSION: No radiographic evidence of acute cardiopulmonary disease. Flu Symptom Course/Dx - Course Course Of Treatment: 24 year old female presents with cough for the past couple days. She's had a fever but that has resolved. She states she was diagnosed with ear infection and started on amoxicillin. She's been having nausea vomiting diarrhea. No abdominal pain. No chest pain or shortness of breath. Admits occasional sore throat. Admits to nasal congestion. She is currently breast-feeding. Has no medical conditions. She is nonsmoker. No recent travel. No pain or swelling in calf muscles. On exam lungs CTA. Tympanic is normal. Pharynx normal. Does have posterior lymphadenopathy. Chest x-ray normal. patient does stat between 95-92 but no SOB. when have take a deep breath o2 stats normal so likely is due to bronchitis. Told to continue amoxicillin for ear infection. told to take tessalon for cough and inhaler. told follow up with primary. Patient understands agrees plan - Diagnoses Differential Diagnosis/HQI/PQRI: Positive: Bronchitis, Pneumonia, Upper Respiratory Infection Provider Diagnoses: Bronchitis Discharge ED - Sign-Out/Discharge Documenting (check all that apply): Patient Departure - Discharge Plan Condition: Good Disposition: HOME Prescriptions: Albuterol HFA INHALER* [Ventolin HFA Inhaler*] 1 puff INH Q4H PRN #1 mdi PRN Reason: Cough Benzonatate CAP* [Tessalon 100 MG CAP*] 100 mg PO TID #21 cap Patient Education Materials: Acute Bronchitis (ED) Referrals: No Primary Care Phys,NOPCP [Primary Care Provider] - Additional Instructions: Use Tessalon three times a day for cough Use inhaler one puff every 4 hours for cough as needed Use saline in the nose take Tylenol or ibuprofen for fever every 6 hours Use humidifier or place warm bowls of water around the room Follow up with primary care physician in 5 days Return to ED if develop any new or worsening symptoms - Billing Disposition and Condition Condition: GOOD Disposition: Home
[2019-08-26] MEDS ORDERED: Albuterol/Ipratropium NEB.SOL* Albuterol 2.5 MG/Ipratropium 0.5 MG 3 ML INH ONE (18:03)
[2019-08-26 18:57] VITALS: BP 96/53
== END 2019-08-26 18:57 | disposition home or self-care (01) ==
LOC: ED 15:39
DX: J40 Bronchitis, not specified as acute or chronic (principal); Z87.891 Personal history of nicotine dependence
CPT/HCPCS: 36415; 71046; 84702; 99282; A9270-GY

== ENCOUNTER 2019-09-03 16:29 | Emergency (ER) | payer OTHER ==
[2019-09-03 17:10] LABS: ABS Eosinophils 0.3 10^3/ul (0-0.6); ABS Lymphocytes 2.4 10^3/ul (1.0-4.8); ABS Monocytes 0.7 10^3/ul (0-0.8); ABS Neutrophils 6.9 10^3/ul (1.5-7.7); Eosinophil % 2.6 %; Hematocrit 41 % (35-47); Hemoglobin 13.7 g/dL (12.0-16.0); Lymphocyte % 23.4 %; Mean Corpuscular HGB Conc 33 g/dL (31-36); Mean Corpuscular Hemoglobin 28 pg (27-31); Mean Corpuscular Volume 83 fL (80-97); Mean Platelet Volume 7.4 fL (7.4-10.4); Nucleated Red Blood Cells % 0.1; Platelet Count 566 10^3/uL (150-450); Red Blood Count 4.97 10^6 /uL (3.70-4.87); Red Cell Distribution Width 14 % (10-15); White Blood Count 10.3 10^3/uL (3.5-10.8)
--- OUTSIDE RECORDS SUMMARY | 2019-09-03 17:12 | XMS REPORT | Summary of Care ---
:1995 Author Organization [facility] Address [address] [facility] [place] [address] Care Team Providers Name Role Phone Jose Cortes Primary Care Provider Reason for Visit Reason Comments Congestion severe chest pain, cannot lift arms certain ways d/t lung pain, SOB , cough with yellow mucous production, Albuterol inhaler not working, afebrile, night sweats, small children in home Encounter Details Date Type Department Care Team Description 09/03/2019 Office Visit [facility] Jose Cortes, Shortness of breath (Primary Dx); Practice [address] [facility] Hypoxia [address] [place] [address] [place] [address] [phone] Allergies No Known Allergiesdocumented as of this encounter (statuses as of 09/03/2019) Medications Medication Sig Dispensed Refills Start Date End Date Status Amoxicillin 500 MG Take 1 Tab 14 Tab 0 03/04/2019 09/03/2019 Discontinued Oral Tab by mouth (Therapy TWICE Completed) DAILY. azithromycin Take 2 6 Tab 0 09/03/2019 09/03/2019 Discontinued (ZITHROMAX) 250 MG pills on Oral Tab the first day and 1 pill each day for 4 days documented as of this encounter (statuses as of 09/03/2019) Active Problems Problem Noted Date Plantar wart of right foot documented as of this encounter (statuses as of 09/03/2019) Social History Tobacco Use Types Packs/Day Years Used Date Former Smoker Cigarettes 0 Smokeless Tobacco: Never Used Alcohol Use Drinks/Week oz/Week Comments Yes occasional Sex Assigned at Date Recorded Not on file Job Start Date Occupation Industry Not on file Not on file Not on file Travel History Travel Start Travel End No recent travel history available. documented as of this encounter Last Filed Vital Signs Vital Sign Reading Time Taken Comments Blood Pressure 104/64 09/03/2019 3:06 PM EDT Pulse 82 09/03/2019 3:06 PM EDT Temperature 37.1 09/03/2019 3:06 PM C (98.7 EDT F) Respiratory Rate 22 09/03/2019 3:06 PM EDT Oxygen Saturation 89% 09/03/2019 3:40 PM EDT Inhaled Oxygen Concentration - - Weight 90.7 kg (199 lb 14.4 oz) 09/03/2019 3:06 PM EDT Height 167.6 cm (5' 6") 09/03/2019 3:06 PM EDT Body Mass Index 32.26 09/03/2019 3:06 PM EDT documented in this encounter Progress Notes Jose Cortes, DO - 09/03/2019 3:00 PM EDT PATIENT: Miguel De Anda : 1995 DATE OF SERVICE: 09/03/2019 CHIEF COMPLAINT: Chief Complaint Patient presents with Congestion severe chest pain, cannot lift arms certain ways d/t lung pain, SOB, cough with yellow mucous production, Albuterol inhaler not working, afebrile, night sweats, small children in home Subjective HISTORY OF PRESENT ILLNESS: Miguel De Anda is a 24-y.o. female. HPI Saw her about a week ago for flu like symptoms and send her to er as she had high fever and appear dehydrated By the time she got to er and had temp checked the tylenol she got had worked and afebrile and no fluids given CXR negative No other testing done Told to finish amoxicillin she had started Comes to me today stating diarrhea profuse one is gone No more fever last 3 days But feels short of breath with normal breath and in particular with deep breaths and pleuritic chestpain too Delivered baby 2 months ago No bloody sputum No calf pain Feels dyspnea getting worse Past Medical History: Diagnosis Date Anxiety Heart palpitations Migraine Plantar wart of right foot Family History Problem Relation Age of Onset Thyroid Mother Heart Father High Cholesterol Father Thyroid Sister No Known Problems Brother No current outpatient medications on file. No current facility-administered medications for this visit. [...] file Gets together: Not on file Attends mormon service: Not on file Active member of [...] Asked Social History Narrative Not on file REVIEW OF SYSTEMS: Review of Systems Constitutional: Negative for chills. Cardiovascular: Negative for palpitations. Neurological: Negative for dizziness. Objective PHYSICAL EXAM: VITALS: BP 104/64 (BP Location: Left arm, Patient Position: Sitting) | Pulse 82 | Temp 98.7 F(37.1 C) (Tympanic) | Resp 22 | Ht 5' 6" (1.676 m) | Wt 199 lb 14.4 oz (90.7 kg) | SpO2 (!) 89% | BMI 32.26 kg/m Body mass index is 32.26 kg/m. Physical Exam Constitutional: Appearance: She is ill-appearing. She is not toxic-appearing. HENT: Head: Normocephalic and atraumatic. Eyes: Conjunctiva/sclera: Conjunctivae normal. Cardiovascular: Rate and Rhythm: Normal rate and regular rhythm. Pulmonary: Effort: Pulmonary effort is normal. Comments: Coarse breath sounds at right base Neurological: Mental Status: She is alert. ASSESSMENT / IMPRESSION: ICD-9-CM ICD-10-CM 1. Shortness of breath 786.05 R06.02 2. Hypoxia 799.02 R09.02 Plan She has pulsox at 89% in clinic today and last time was 91%. Prior ones above 94 % in this clinic I called er and told them im sending her again and she needs ct chest to rule out PE and/or infection. Author: Jose Cortes DO 09/03/2019 15:40 documented in this encounter Plan of Treatment [...] filedocumented in this encounter Visit Diagnoses Diagnosis Shortness of breath - Primary Hypoxia Hypoxemia documented in this encounter documented as of this encounter
--- NOTE | 2019-09-03 17:19 | ED ---
Respiratory - HPI Summary HPI Summary: 24 yo female presents with "lung pain" and "low oxygen". She tells me that about 2 weeks ago she noticed pain in her lungs with deep breaths - she was getting over a cold at that time and thought it was due to a cough she was having. She finished amoxicillin a few days ago and cold symptoms have resolved , but her lung discomfort is still present. She saw her PCP today and her O2% was 92% and she was referred to the ED for concerned of PE. Pt recently gave in June - full term without complications. Denies fever, chills, SOB, palpitations, cough, abdominal pain, n/v, calf pain, or personal or fam hx of blood clots or clotting dz. - History of Current Complaint Chief Complaint: EDShortnessOfBreath Stated Complaint: SHORT OF BREATH/ BRONITIS Time Seen by Provider: 09/03/19 17:18 Hx Obtained From: Patient Onset/Duration: Sudden Onset Initial Severity: Moderate Current Severity: Moderate Pain Intensity: 7 - Allergy/Home Medications Allergies/Adverse Reactions: Allergies Allergy/AdvReac Type Severity Reaction Status Date / Time No Known Allergies Allergy Verified 08/26/19 16:07 PMH/Surg Hx/FS Hx/Imm Hx Endocrine/Hematology History: Denies: Hx Diabetes, Hx Thyroid Disease Cardiovascular History: Denies: Hx Hypercholesterolemia, Hx Hypertension Respiratory History: Denies: Hx Asthma, Hx Chronic Obstructive Pulmonary Disease (COPD) GI History: Denies: Hx Ulcer Neurological History: Denies: Hx CVA, Hx Headaches, Hx Migraine Psychiatric History: Denies: Hx Anxiety, Hx Depression - Surgical History Surgical History: None - Immunization History Date of Tetanus Vaccine: utd Date of Influenza Vaccine: utd Infectious Disease History: No Infectious Disease History: Denies: Hx Clostridium Difficile, Hx Hepatitis, Hx Human Immunodeficiency Virus (HIV), Hx of Known/Suspected MRSA, Hx Shingles, Hx Tuberculosis, Hx Known/ Suspected VRSA, History Other Infectious Disease, Traveled Outside the [place] in Last 30 Days - Family History Known Family History: Negative: Cardiac Disease, Hypertension, Diabetes - Social History Lives: With Family Alcohol Use: Rare Substance Use Type: Reports: None Substance Use Comment - Amount & Last Used: pt declines current use, postive for marijuana at screen early Smoking Status (MU): Former Smoker Have You Smoked in the Last Year: No Review of Systems Constitutional: Negative Eyes: Negative ENT: Negative Cardiovascular: Negative Positive: Other - "lung pain" Gastrointestinal: Negative Genitourinary: Negative Musculoskeletal: Negative Skin: Negative Neurological: Negative Psychological: Normal All Other Systems Reviewed And Are Negative: No Physical Exam - Summary Physical Exam Summary: GENERAL: NAD. WDWN. No pain distress. SKIN: No rashes, sores, or open wounds. HEENT: Head: AT/NC Eyes: PERRLA. EOM intact. Conjunctiva clear without inflammation or discharge. Ears: Hearing grossly normal. TMs intact, no bulging, erythema, or edema. Nose: Nasal mucosa pink and moist. NTTP maxillary and frontal sinus. Throat: Posterior oropharynx without exudates, erythema, or tonsillar enlargement. Uvula midline. NECK: Supple. Nontender. No lymphadenopathy. CHEST: CTAB. No r/r/w. No accessory muscle use. Breathing comfortably and in no distress. CV: RRR. Pulses intact. Brisk cap refill. B/l LEs without edema or tenderness. Negative milton sign. No JVD. ABDOMEN: Soft. NTTP. No distention or guarding. No CVA tenderness. Bowel sounds present NEURO: Alert. PSYCH: Age appropriate behavior. Triage Information Reviewed: Yes Vital Signs On Initial Exam: Initial Vitals Temp Pulse Resp BP Pulse Ox 98.1 F 92 16 111/75 92 09/03/19 16:35 09/03/19 16:35 09/03/19 16:35 09/03/19 16:35 09/03/19 16:35 Vital Signs Reviewed: Yes Procedures - Sedation Patient Received Moderate/Deep Sedation with Procedure: No Diagnostics - Vital Signs Vital Signs Temp Pulse Resp BP Pulse Ox 09/03/19 16:35 98.1 F 92 16 111/75 92 Vital Signs (72 hours) 09/03/19 09/03/19 09/03/19 16:35 17:30 17:32 Temperature 98.1 F Pulse Rate 92 85 93 Respiratory 16 Rate Blood Pressure 111/75 118/70 (mmHg) O2 Sat by Pulse 92 92 92 Oximetry 09/03/19 09/03/19 09/03/19 18:00 18:01 19:10 Temperature Pulse Rate 89 84 76 Respiratory Rate Blood Pressure 120/87 (mmHg) O2 Sat by Pulse 93 92 96 Oximetry 09/03/19 09/03/1919 20:53 20:54 20:58 Temperature Pulse Rate 68 78 Respiratory 15 24 16 Rate Blood Pressure 128/87 (mmHg) O2 Sat by Pulse 91 98 Oximetry 09/03/19 09/03/19 09/03/19 21:00 22:00 22:11 Temperature Pulse Rate 84 94 Respiratory 21 20 23 Rate Blood Pressure 128/87 (mmHg) O2 Sat by Pulse 98 91 Oximetry 09/03/19 09/03/19 09/03/19 22:12 22:13 22:14 Temperature Pulse Rate Respiratory 27 26 24 Rate Blood Pressure 128/87 128/87 128/87 (mmHg) O2 Sat by Pulse Oximetry 09/03/19 09/03/19 09/03/19 22:15 22:16 22:18 Temperature Pulse Rate Respiratory 23 21 26 Rate Blood Pressure 128/87 128/87 128/87 (mmHg) O2 Sat by Pulse Oximetry 09/03/19 09/03/19 09/03/19 22:19 22:23 22:39 Temperature Pulse Rate 92 Respiratory 28 21 23 Rate Blood Pressure 128/87 128/87 128/87 (mmHg) O2 Sat by Pulse 94 Oximetry 09/03/19 09/03/19 22:49 22:51 Temperature 99.2 F 99.2 F Pulse Rate 102 102 Respiratory 20 20 Rate Blood Pressure 128/87 128/87 (mmHg) O2 Sat by Pulse 92 92 Oximetry - Laboratory Lab Results: Lab Results Laboratory Tests 09/03/19 09/03/19 09/03/19 17:01 17:01 17:01 WBC 10.3 RBC 4.97 H Hgb 13.7 Hct 41 MCV 83 MCH 28 MCHC 33 RDW 14 Plt Count 566 H MPV 7.4 Neut % (Auto) 66.7 Lymph % (Auto) 23.4 Grundy % (Auto) 6.9 Eos % (Auto) 2.6 Baso % (Auto) 0.4 Absolute Neuts (auto) 6.9 Absolute Lymphs (auto) 2.4 Absolute Monos (auto) 0.7 Absolute Eos (auto) 0.3 Absolute Basos (auto) 0.0 Absolute Nucleated RBC 0.0 Nucleated RBC % 0.1 INR (Anticoag Therapy) 1.00 D-Dimer, Quantitative 416 H Sodium 139 Potassium 4.3 Chloride 105 Carbon Dioxide 26 Anion Gap 8 BUN 12 Creatinine 0.84 Est GFR ( Amer) 99.2 Est GFR (Non-Af Amer) 82.0 BUN/Creatinine Ratio 14.3 Glucose 91 Lactic Acid Calcium 9.4 Total Bilirubin 0.30 AST 12 L ALT 11 Alkaline Phosphatase 62 Troponin I 0.00 Total Protein 7.8 Albumin 4.1 Globulin 3.7 Albumin/Globulin Ratio 1.1 Beta HCG, Quant < 0.60 09/03/19 09/03/19 17:36 19:52 WBC RBC Hgb Hct MCV MCH MCHC RDW Plt Count MPV Neut % (Auto) Lymph % (Auto) Grundy % (Auto) Eos % (Auto) Baso % (Auto) Absolute Neuts (auto) Absolute Lymphs (auto) Absolute Monos (auto) Absolute Eos (auto) Absolute Basos (auto) Absolute Nucleated RBC Nucleated RBC % INR (Anticoag Therapy) D-Dimer, Quantitative Sodium Potassium Chloride Carbon Dioxide Anion Gap BUN Creatinine Est GFR ( Amer) Est GFR (Non-Af Amer) BUN/Creatinine Ratio Glucose Lactic Acid 0.5 Calcium Total Bilirubin AST ALT Alkaline Phosphatase Troponin I 0.00 Total Protein Albumin Globulin Albumin/Globulin Ratio Beta HCG, Quant Result Diagrams: 09/03/19 17:01 09/03/19 17:01 Lab Statement: Any lab studies that have been ordered have been reviewed, and results considered in the medical decision making process. - CT CTA chest CT Interpretation Completed By: Radiologist Summary of CT Findings: Ballistics Professor: ([id number]) Director Of Transportation: (MARY) Report Date: 09/03/2019 19:02:00 Report Status: Final Start of Report Content PROCEDURE INFORMATION: Exam: CT Angiography Chest With Contrast Exam date and time: 09/03/2019 7:02 PM Clinical history: 24 years old, female; Chest pain; Additional info: Dyspnea. Elevated d dimer TECHNIQUE: Imaging protocol: Computed tomographic angiography of the chest with intravenous contrast. 3D rendering: MIP reconstructed images were created and reviewed. Radiation optimization: All CT scans at this facility use at least one of these dose optimization techniques: automated exposure control; mA and/ or kV adjustment per patient size (includes targeted exams where dose is matched to clinical indication); or iterative reconstruction. Contrast material : OMNI 350; Contrast volume: 80 ml; Contrast route: IV INJECTOR; COMPARISON: DX CXR CHEST PA LAT 2 VWS 08/26/2019 5:42 PM FINDINGS: Pulmonary arteries: Pulmonary arteries are well opacified to the subsegmental branches. Normal caliber main pulmonary artery. No filling defects throughout the pulmonary artery tree. Aorta: Normal caliber aorta with no evidence of dissection or rupture. Thyroid: No thyroid nodules. Lungs: Subsegmental atelectasis inferomedial a common medial segment right middle lobe, medial basal segment right lower lobe, and anteromedial basal segment left lower lobe. No pulmonary nodules, masses, or consolidations. Pleural space: Normal. No pneumothorax. No pleural effusion. Heart: Normal. No cardiomegaly. No pericardial effusion. Lymph nodes: Normal. No enlarged lymph nodes. Bones/joints: No fractures. No suspicious bone lesions. Soft tissues: Normal. IMPRESSION: No pulmonary emboli. No additional findings to correlate with patient's symptomatology. To contact [employer] with a general question: [facility] - [phone] For direct physician to physician contact: Physician Hotline - [phone] [facility] ([facility] Facility ID #[id number]) ========= End of Report Content - Ultrasound b/l lower legs Ultrasound Interpretation Completed By: Radiologist Summary of Ultrasound Findings: Ballistics Professor: ([id number]) Director Of Transportation: ( MARY) Report Date: 09/03/2019 20:47:00 Report Status: Final ======== Start of Report Content PROCEDURE INFORMATION: Exam: US Duplex Lower Extremity Veins Exam date and time: 09/03/2019 8:47 PM Clinical history: 24 years old, female; Other: SOB, d dimer; Additional info: D dimer. SOB TECHNIQUE : Imaging protocol: Real-time duplex ultrasound of the Lower Extremities with 2- D singh scale, color Doppler flow and spectral waveform analysis with image documentation. Complete exam focused on the bilateral lower extremity veins. COMPARISON: No relevant prior studies available. FINDINGS: Right deep veins: Normal. The common femoral, femoral, popliteal, and posterior tibial veins are patent without thrombus. Normal compressibility, augmentation response and Doppler waveforms. Right superficial veins: Saphenofemoral junction is patent without thrombus. Left deep veins: Normal. The common femoral, femoral, popliteal, and posterior tibial veins are patent without thrombus. Normal compressibility, augmentation response and Doppler waveforms. Left superficial veins: Saphenofemoral junction is patent without thrombus. Soft tissues: Normal. IMPRESSION: No bilateral lower extremity deep vein thrombosis. To contact [facility] with a general question: [facility] - [phone] For direct physician to physician contact: Physician Hotline - [phone] [facility] ([facility] Facility ID #[id number]) End of Report Content ====== - EKG 1 EKG Comparison: Other - 76 bpm. NSR. No STEMI as read by Dr. Ellis Disposition - Course Course Of Treatment: Exam WNL. EKG, CT, and US as above. She continued to have "lung pain" during breathing. Duoneb treatment did not change symptoms. Labwork revealed elevated platelets, RBC, and d-dimer without clot on CT or US. Pt was ambulated to the restroom and O2% dropped to 87-89% for about 10-20 seconds with tachycardia, otherwise remained around 92%. Discussed case with Dr. Ellis and she recommends admission for further workup. I discussed this with the pt and she refuses admission as she has small children at home and needs to care for them. I believe the patient is clinically sober, free from distracting injury, appears to have insight and reasoning and, in my judgment, has capacity to make decisions. I have explained that I am concerned this may represent an underlying clotting/heme disorder and have explained my concerns and they have verbalized understanding. I have discussed the need to obtain more information about the cause of the pain. I have told the patient if they do not desire admission their condition could get much worse, could become critically ill and suffer disability and possibly . She continued to decline admission and wishes to be discharged. Strongly encouraged to return to the ER if symptoms worsen or if she develops new symptoms. Pt left AMA. - Diagnoses Provider Diagnoses: Dyspnea Discharge ED - Sign-Out/Discharge Documenting (check all that apply): Patient Departure - Discharge Plan Condition: Fair Disposition: AGAINST MEDICAL ADVICE Referrals: No Primary Care Phys,NOPCP [Primary Care Provider] - Additional Instructions: Some of your labwork today was abnormal and your imaging and exam did not reveal a cause of your symptoms. The provider that examined you today recommends admission to the hospital for further testing and you have declined this. Please know that your symptoms could worsen and pose threats to your life, including or permanent disability. Please return to the ER if you change your mind - otherwise I recommend that you follow up with your primary doctor within 1-2 days - Billing Disposition and Condition Condition: FAIR Disposition: Against Medical Advice - Attestation Statements Provider Attestation: I have seen the patient with the RASHIDA and agree with the plan and documentation below except as noted: 24 y/o F p/w cough and hypoxia. Noted to be hypoxic to 91 % on RA and desat to mid 80's when ambulating. Neg CTA chest and LE duplex. Patient does not want to stay despite discussion about hypoxia. Patient left AMA. Naila Ellis MD
[2019-09-03 17:27] LABS: ALT 11 U/L (7-52); AST 12 U/L (13-39); Albumin 4.1 g/dL (3.2-5.2); Albumin/Globulin Ratio 1.1 (1-3); Alkaline Phosphatase 62 U/L (34-104); Anion Gap 8 mmol/L (2-11); BUN/Creatinine Ratio 14.3 (8-20); Blood Urea Nitrogen 12 mg/dL (6-24); CO2 Carbon Dioxide 26 mmol/L (22-32); Calcium 9.4 mg/dL (8.6-10.3); Chloride 105 mmol/L (101-111); EGFR African American 99.2 (>60); Globulin 3.7 g/dL (2-4); Glucose 91 mg/dL (70-100); Potassium 4.3 mmol/L (3.5-5.0); Sodium 139 mmol/L (135-145); Total Protein 7.8 g/dL (6.4-8.9)
[2019-09-03 17:33] LABS: HCG Pregnancy < 0.60 mIU/mL
[2019-09-03] MEDS ORDERED: Iohexol 350* (CONTRAST) 500 ML MDV IV ONE (18:02)
[2019-09-03] MEDS ORDERED: Albuterol/Ipratropium NEB.SOL* Albuterol 2.5 MG/Ipratropium 0.5 MG 3 ML INH ONE (20:47)
[2019-09-03 21:23] VITALS: BP 128/87
== END 2019-09-03 22:51 | disposition left against medical advice (07) ==
LOC: ED 16:29
DX: R06.00 Dyspnea, unspecified (principal); Z87.891 Personal history of nicotine dependence
CPT/HCPCS: 36415; 71275; 80053; 83605; 84484; 84702; 85025; 85379; 85610; 93005; 93970; 99283; A9270-GY; Q9967